=== PATIENT | male | born 1965 | race Caucasian/White ===

== ENCOUNTER 2017-03-08 10:49 | Emergency (ER) | payer OTHER ==
[~2017-03-08] VITALS: Ht 190.5 cm; Wt 106.0 kg
[2017-03-08 10:57] VITALS: Ht 190.5 cm; Wt 106.0 kg
[2017-03-08] MEDS ORDERED: DIPHTH/TET/ACEL PERTUSS (ADULT) 0.5 ML VIAL IM* ONE (11:30)
[2017-03-08] MEDS ORDERED: LIDOCAINE 2% (MDV) 20 ML INJ INJ ONE (11:30)
--- NOTE | 2017-03-08 11:40 | ERD ---
ER Documentation Chief Complaint Date/Time DATE: 03/08/17 TIME: 11:35 Chief Complaint PT with LAC to R hand pinky, no tetanus shot, good ROM. HPI 52-year-old male present ED with laceration to his right fifth finger. Patient is left-hand dominant, states that he was doing yard work and secondly because he is distal aspect of the volar right fifth finger with the trimming jonathon. He was able to stop the bleeding at home. He did not remember when his last tetanus update was. Patient has history of stents or tendon injury of the right fourth finger, is scheduled for surgery in a few month. Denies any other medical history. Has any other injuries. ROS All systems reviewed and are negative except as per history of present illness. PMhx/Soc Medical and Surgical Hx: pt denies Medical Hx Physical Exam Vitals Vital Signs Date Time Temp Pulse Resp B/P Pulse Ox O2 Delivery O2 Flow Rate FiO2 03/08/17 10:57 98.4 109 18 141/91 97 Physical Exam General: Well-developed, well-nourished, conscious and coherent, in no distress Skin: Warm and dry without rash, good texture and turgor. Superficial 1 cm laceration on the volar aspect of the distal right fifth finger. Head: Normocephalic without evidence of trauma Eyes: Sclera and conjunctivae normal; pupils equal, round, and reactive to light; extraocular movements are intact Chest: Normal AP diameter. Good expansion without retractions. Nontender. Lungs are clear to auscultate bilaterally with good tidal volume Heart: Regular rate and rhythm. No murmur, rub, or gallops heard Extremities: Right fourth finger flexed at 90, full range of motion on all other joints. Good strength bilaterally. No clubbing, cyanosis, or edema. Peripheral pulses are intact. Sensation intact Neuro: Alert and oriented 4, GCS 15. Cranial nerves grossly intact. Motor and sensory exams nonfocal. Moves all extremities. Speech clear. Gait normal Results 24 hrs Current Medications Medications (Trade) Dose Ordered Sig/Angela Route PRN Reason Start Time Stop Time Status Last Admin Dose Admin Diphtheria/ Tetanus/Acell Pertussis (Adacel) 0.5 ml ONCE ONCE IM* 03/08/17 11:30 03/08/17 11:31 DC Lidocaine (Xylocaine 2% (Mdv) 20 ml) 20 ml ONCE ONCE INJ 03/08/17 11:30 03/08/17 11:31 DC Procedures/MDM Procedure note: laceration repair Verbal consent was obtained for the laceration repair. The wound was copiously irrigated. Digital block and local anesthesia was provided using 2% lidocaine. After appropriate anesthesia, the area was explored under a bloodless field. Full range of motion of the joint above and below the injury was noted. No foreign body, deep structure or tendon involvement was noted. Closure was achieved with 2 interrupted sutures using 5-0 Ethilon. Good cosmetic and hemostatic results were obtained with the closure. The wound was then cleaned and a dressing was applied. TDap given to the patient in the ED. Patient advised to follow-up in the ED in 2 days for wound check. Departure Diagnosis: Primary Impression: Laceration Condition: Stable Patient Instructions: Laceration, Hand [facility]errals[facility] Additional Instructions: Return to this facility in 2 DAYS for a follow-up exam.Return sooner if your condition worsens. Follow up with your physician to remove the stitches:For Face wounds 5-7 days.For Elsewhere on the body 7-10 days. SARAH STALLINGS NP Mar 08, 2017 11:39
[2017-03-08] MEDS ORDERED: IBUP-1542 PO (12:03)
== END 2017-03-08 12:10 | disposition home or self-care (01) ==
LOC: FTE 10:49
DX: S61.216A Laceration without foreign body of right little finger without damage to nail, initial encounter (principal); W29.8XXA Contact with other powered hand tools and household machinery, initial encounter; Y92.007 Garden or yard of unspecified non-institutional (private) residence as the place of occurrence of the external cause
CPT/HCPCS: 90471; 90715